=== PATIENT | male | born 1985 | race Caucasian/White ===

== ENCOUNTER 2025-01-20 10:25 | Outpatient (AMB) | payer OTHER, SELFPAY ==
--- NOTE | 2025-01-20 10:31 | MHC.PC.OV ---
Vital Signs 01/20/25 10:35 01/20/25 10:44 Height 5 ft 6.93 in Weight 372 lb 4 oz BMI 58.4 BP 197/109 H 181/96 H Blood Pressure Location Rt brachial Lt brachial Position Sitting Sitting Respiration 16 Pulse 117 H 113 H Pulse Source Pulse Oximeter Pulse Oximeter Temp 98.5 F Temp Source Oral Pulse Oximetry (%) 98 Oxygen Delivery Method Room Air Intake Visit Reasons: CPE Intake Note: New patient visit Car Pincher Required: No Tobacco use date assessed: 01/20/25 Dental Screening Dental Screen Date: 01/20/25 Did you have a dental visit in the last 12 months?: Yes Did you have a dental problem in the last 6 months where you did not have access to dental care?: No Was dental information given to patient?: Patient has dentist HPI HPI Comments History of Present Illness Details 39 year old male with a past medical history of GERD, allergies, h/o gastric sleeve, anxiety, elevated blood pressure presenting to establish care/CPE. Transfer from [facility]. Obesity: BMI 58.4. history of gastric sleeve 2019 at [facility]. Has gained back all the weight loss despite portion control and walking daily. He has seen weight management in the past. He has seen nutrition. We discussed ongoing nutrition efforts today. Blood pressure is elevated today. Says it has been high in the past as well. Lipids ordered today but have been high in the past. MSK: History of torn meniscus 2023. Tinnitus: request ent referral. Lots of exposure to loud noise/music ROS CONSTITUTIONAL: Denies weight loss, fever and chills. HEENT: Denies changes in vision and hearing. RESPIRATORY: Denies SOB and cough. CV: Denies palpitations and CP GI: Denies abdominal pain, nausea, vomiting and diarrhea. : Denies dysuria and urinary frequency. MSK: Denies new myalgia and joint pain. SKIN: Groin rash NEUROLOGICAL: Denies headache PSYCHIATRIC: Denies recent changes in mood. PHYSICAL EXAM: GENERAL: Alert and oriented x 3. NAD EYES: EOMI. Anicteric. HENT: Moist mucous membranes. No scleral icterus. No cervical lymphadenopathy. LUNGS: Clear to auscultation bilaterally. CARDIOVASCULAR: Regular rate and rhythm. No murmur. No JVD. ABDOMEN: Soft, non-tender +bs EXTREMITIES: No edema. Non-tender. SKIN: Tinea cruris NEUROLOGIC: No focal neurological deficits. CN II-XII grossly intact PSYCHIATRIC: Cooperative. Appropriate mood and affect [facility] Surgical History History of tonsillectomy and adenoidectomy H/O gastric sleeve History of cholecystectomy Social History Housing: House Alcohol intake: current Patient Tobacco Use Status: Never used Tobacco e-Cigarette/Vaping Use: Never Used Second Hand Smoke Exposure: No service: No Current occupational status: employed Current occupation: Marketing Current occupational exposures/hazards: No Cognitive needs: No Hearing needs: No Vision needs: No Questionnaire PHQ-9 Over the last 2 weeks, how often have you been bothered by any of the following problems? 1. Little interest or pleasure in doing things: not at all 2. Feeling down, depressed, or hopeless: not at all 3. Trouble falling or staying asleep, or sleeping too much: not at all 4. Feeling tired or having little energy: more than half the days 5. Poor appetite or overeating: more than half the days 6. Feeling bad about yourself - or that you are a failure or have let yourself or your family down: not at all 7. Trouble concentrating on things, such as reading the newspaper or watching television: not at all 8. Moving or speaking so slowly that other people could have noticed. Or the opposite - being so fidgety or restless that you have been moving around a lot more than usual: not at all 9. Thoughts that you would be better off or of hurting yourself in some way: not at all Total score: 4 Depression Screening Interpretation: Negative Depression Screening Done: Yes 23301 - PHQ-9 Billing: Yes Source: Developed by Drs. Hubert Thayer, Evelyn Moon, Palmer Larson and colleagues, with an educational emil from [employer]. Thrive Questionnaire Date Thrive assessed: 01/20/25 I am a: Patient What is your living situation today?: I have a steady place to live Within the past 12 months, did the food you bought not last and you didn't have the money to get more?: Never true Within the past 12 months, did you worry whether your food would run out before you got money to buy more?: Never true Do you have trouble paying for medicines?: No Do you have trouble getting transportation to medical appointments?: No Do you have trouble paying your heating and electricity bill?: No Do you have trouble taking care of your child, family member or friend?: No Do you have trouble with day-to-day activities such as bathing, preparing meals, shopping, managing finances, etc.?: No Are you currently unemployed and looking for a job?: No Are you interested in more education?: No Please select the resources that you would like help with: None Currently or been in a relationship where the following occur: No concerns reported THRIVE Score: 0 AUDIT C Alcohol Use Questionnaire (AUDIT-C) 1. How often do you have a drink containing alcohol?: Never 3. How often do you have six or more drinks on one occasion?: Never Total Score: 0 WADE-7 AMB Questionnaire WADE-7 Date WADE - 7 assessed: 01/20/25 Feeling nervous, anxious, or on edge: 0 = Not at all Not being able to stop or control worryin = Not at all Worrying too much about different things: 0 = Not at all Trouble relaxin = Not at all Being so restless that it is hard to sit still: 0 = Not at all Becoming easily annoyed or irritable: 1 = Several days Feeling afraid as if something awful might happen: 1 = Several days Total WADE-7 score (0-4 normal; 5-9 mild; 10-14 moderate; 15-21 severe): 2 Source: Developed by Drs. Hubert Thayer, Evelyn Moon, Palmer Larson and colleagues, with an educational emil from [employer]. WADE-7 Assessment Billing WADE-7 Assessment Tool: WADE-7 Assessment 70106 ACT Questionnaire In the past 4 weeks, how much of the time did your asthma keep you from getting as much done at work, school or at home?: None of the time During the past 4 weeks, how often have you had shortness of breath?: Not at all During the past 4 weeks, how often did your asthma symptoms wake you up at night or earlier than usual in the morning?: Not at all During the past 4 weeks, how often have you had to use your rescue inhaler or nebulizer medication?: Not at all How would you rate your asthma control during the past 4 weeks?: Completely controlled ACT Interpretation: Negative Score: 25 Physical exam (Primary Care) Vital Signs: Last Vital Signs Temp 98.5 F 01/20/25 10:35 Pulse 113 H 01/20/25 10:44 Resp 16 01/20/25 10:35 BP 181/96 H 01/20/25 10:44 Pulse Ox 98 01/20/25 10:35 Oxygen Delivery Method Room Air 01/20/25 10:35 BMI result Body Mass Index 58.4 Tobacco/Smoking Status: Tobacco use Status Tobacco use date assessed 01/20/25 01/20/25 10:41 Patient Tobacco Use Status Never used Tobacco 01/20/25 10:41 e-Cigarette/Vaping Use Never Used 01/20/25 10:41 PHQ-9: PHQ-9 Score PHQ-9: Total score 4 01/21/25 08:40 Depression Screening Interpretation: Negative Thrive Assessment: Date of Thrive Assessment Date Thrive assessed 01/20/25 01/20/25 10:50 Currently or been in a relationship where the following occur: No concerns reported Coding Level of Care Code New Pt Level 4 (92364) Complex EM visit Add On G2211 Diagnoses Type 2 diabetes mellitus without complication, unspecified whether terminal block assembler insulin use E11.9 Diabetes mellitus retirement insulin use: unspecified retirement insulin use status Diabetes mellitus complication status: without complication Hypertension, unspecified type I10 Hypertension type: unspecified Obesity, morbid, BMI 50 or higher E66.01 Additional Codes Asthma Control Questionnaire - ACT Interpretation: Negative ([id number]) WADE-7 Assessment Billing - WADE-7 Assessment Tool: WADE-7 Assessment 95776 ([id number]) PHQ-9 - 10951 - PHQ-9 Billing: Yes ([id number]) Assessment & Plan Assessment & Plan (1) Type 2 diabetes mellitus: Code(s): E11.9 - Type 2 diabetes mellitus without complications Category: Medical Qualifiers: Diabetes mellitus terminal block assembler insulin use: unspecified terminal block assembler insulin use status Diabetes mellitus complication status: without complication Qualified Code(s): E11.9 - Type 2 diabetes mellitus without complications (2) Hypertension: Code(s): I10 - Essential (primary) hypertension Category: Medical Qualifiers: Hypertension type: unspecified Qualified Code(s): I10 - Essential (primary) hypertension (3) Obesity, morbid, BMI 50 or higher: Code(s): E66.01 - Morbid (severe) obesity due to excess calories Category: Medical Plan 39 year old to establish care Past medical, surgical, social reviewed Hypertension-start chlorthalidone 25 mg daily Obesity-A1C following appt returning in diabetic range. Plan was to start GLP regardless. Tinea cruris-oral antifungal following by nystatin powder Follow up 3 months Orders: Orders Comprehensive Met. Panel 01/20/25 E66.01 - Morbid (severe) obesity due to excess calories, F41.9 - Anxiety disorder, unspecified, I10 - Essential (primary) hypertension, K21.9 - Gastro-esophageal reflux disease without esophagitis, R01.1 - Cardiac murmur, unspecified, R35.89 - Other polyuria Hemoglobin A1c 01/20/25 E66.01 - Morbid (severe) obesity due to excess calories, F41.9 - Anxiety disorder, unspecified, I10 - Essential (primary) hypertension, K21.9 - Gastro-esophageal reflux disease without esophagitis, R01.1 - Cardiac murmur, unspecified, R35.89 - Other polyuria Testosterone, Free/Total 01/20/25 N52.9 - Male erectile dysfunction, unspecified Complete Blood Count Auto Diff 01/20/25 E66.01 - Morbid (severe) obesity due to excess calories, F41.9 - Anxiety disorder, unspecified, I10 - Essential (primary) hypertension, K21.9 - Gastro-esophageal reflux disease without esophagitis, R01.1 - Cardiac murmur, unspecified, R35.89 - Other polyuria Lipid Panel 01/20/25 E66.01 - Morbid (severe) obesity due to excess calories, F41.9 - Anxiety disorder, unspecified, I10 - Essential (primary) hypertension, K21.9 - Gastro-esophageal reflux disease without esophagitis, R01.1 - Cardiac murmur, unspecified, R35.89 - Other polyuria TSH reflex Free T4 01/20/25 E66.01 - Morbid (severe) obesity due to excess calories, F41.9 - Anxiety disorder, unspecified, I10 - Essential (primary) hypertension, K21.9 - Gastro-esophageal reflux disease without esophagitis, R01.1 - Cardiac murmur, unspecified, R35.89 - Other polyuria Referrals Ear/Nose/Throat Referral H93.19 - Tinnitus, unspecified ear Medications: New ondansetron HCl 4 mg PO Q8H PRN 30 tabs 3RF nausea and vomiting nystatin 1 appl topical BID 60 grams 3RF Zepbound (tirzepatide (weight loss)) for 4 weeks 2.5 mg (0.5 mL) subcut QWEEK 2 mL 3RF NS E66.01 - Morbid (severe) obesity due to excess calories, E78.5 - Hyperlipidemia, unspecified, I10 - Essential (primary) hypertension omeprazole 20 mg PO DAILY 90 tabs 3RF cetirizine (All Day Allergy (cetirizine)) 10 mg PO DAILY PRN 90 tabs 3RF allergy symptoms terbinafine HCl 250 mg PO DAILY 14 tabs 0RF chlorthalidone 25 mg PO DAILY 90 tabs 3RF
[2025-01-20 10:35] VITALS: BP 197/109; PULSE 117; RESP 16; TEMP 36.9; O2SAT 98; BMI 58.4
[2025-01-20 10:44] VITALS: BP 181/96; PULSE 113
== END 2025-01-20 11:13 | disposition home or self-care (01) ==
LOC: HO.HMCFM 10:25
PROVIDERS: PCP Internal Medicine; Visit Provider Internal Medicine
DX: E11.9 Type 2 diabetes mellitus without complications (principal); E66.01 Morbid (severe) obesity due to excess calories; Z68.43 Body mass index [BMI] 50.0-59.9, adult; I10 Essential (primary) hypertension

== ENCOUNTER 2025-01-20 10:25 | Outpatient (REF) | payer OTHER, SELFPAY ==
[2025-01-20 14:19] LABS: MANUAL DIFF FLAG NO
[2025-01-20 14:21] LABS: Hematocrit 45.8 % (42.0-52.0); Hemoglobin 14.6 g/dl (14.0-18.0); Imm Gran Abs Auto 0.14 X10*3/uL (0.00-0.03); Imm Gran Pct Auto 1.3 % (0.0-0.4); Lymphocytes Absolute Auto 2.2 X10*3/uL (1.2-4.9); Mean Corpuscular HGB Conc 31.9 g/dl (31.0-36.0); Mean Corpuscular Hemoglobin 25.3 pg (27.0-33.0); Mean Corpuscular Volume 79.2 fL (80.0-98.0); NRBC Abs Auto 0.000 X10*3/uL (0.0-0.012); NRBC Pct Auto 0.0 /100WBC (0.0-0.2); Platelet Count 326 X10*3/uL (160-400); Red Blood Count 5.78 X10*6/uL (4.60-5.80); White Blood Count 11.0 X10*3/uL (4.8-10.8)
[2025-01-20 14:53] LABS: Alanine Aminotransferase 29 U/L (0-40); Albumin Level 4.9 g/dL (3.5-5.0); Alkaline Phosphatase 80 U/L (39-117); Anion Gap 9 (12-20); Aspartate Amino Transferase 28 U/L (5-37); Blood Urea Nitrogen 17 mg/dL (9-16); Calcium 9.7 mg/dL (8.4-10.2); Carbon Dioxide 31 mmol/L (22-29); Chloride 101 mmol/L (96-108); Cholesterol 209 mg/dL (<200); Estimated Glomerular Filt Rate > 60; HDL Cholesterol 60 mg/dL (>40); Potassium 4.1 mmol/L (3.3-5.1); Sodium 137 mmol/L (135-145); Total Protein 7.7 g/dL (6.5-8.0); Triglycerides 136 mg/dL (<150)
== END 2025-01-20 10:26 | disposition home or self-care (01) ==
LOC: HO.WFDLDS 10:25
PROVIDERS: PCP Internal Medicine; Visit Provider Internal Medicine
DX: I10 Essential (primary) hypertension (principal); E66.01 Morbid (severe) obesity due to excess calories; K21.9 Gastro-esophageal reflux disease without esophagitis; R01.1 Cardiac murmur, unspecified; F41.9 Anxiety disorder, unspecified; R35.89 Other polyuria; E66.9 Obesity, unspecified; E11.9 Type 2 diabetes mellitus without complications; N52.9 Male erectile dysfunction, unspecified; Z68.43 Body mass index [BMI] 50.0-59.9, adult
CPT/HCPCS: 36415; 80053; 80061; 83036; 84443; 85025; 96127; 96160